=== PATIENT | female | born 1995 | race Hispanic/Latino ===

== ENCOUNTER 2018-07-16 11:08 | Day surgery (SDC) | payer MEDICAID ==
[~2018-07-16 11:08] MED LIST: DEMEROL IV PRN; DILAUDID IV PRN; LACTATED RINGERS 1,000 ML IV SCH; ZOFRAN IV PRN
--- NOTE | 2018-07-16 12:30 | Anesthesia Consultation ---
Anesthesia Consult and Med Hx Date of service: 07/16/18 - Airway Anesthetic Teeth Evaluation: Good ROM Head & Neck: Adequate Mental/Hyoid Distance: Adequate Mallampati Class: Class I Intubation Access Assessment: Good - Pulmonary Exam CTA: Yes - Cardiac Exam Cardiac Exam: RRR - Pre-Operative Health Status ASA Pre-Surgery Classification: ASA1 Proposed Anesthetic Plan: General - Pulmonary Hx Smoking: Yes (STOPPED X 3 MONTHS ( 1 PACK PER WEEK)) Hx Asthma: Yes (INHALER PRN) Hx Sleep Apnea: No (BECKY PRE SCREEN NEGATIVE.) - Cardiovascular System Hx Hypertension: No - Central Nervous System Hx Back Pain: Yes (FROM STONE) - Other Systems Hx Cancer: No
--- NOTE | 2018-07-16 12:30 | Anesthesia Day of Surgery ---
Anesthesia Day of Surgery - Day of Surgery Patient Examined: Yes Patient H&P Reviewed: Yes Patient is NPO: Yes
[2018-07-16] MEDS: VERSED IV NR ×2 (13:10→15:34)
[2018-07-16] MEDS ORDERED: ANCEF/STERILE WATER 2 GM/20 ML IV NR (14:00)
[2018-07-16] MEDS ORDERED: DIPRIVAN 10 MG/ML IV ONE (15:47)
[2018-07-16] MEDS ORDERED: SUBLIMAZE ONE (15:47)
--- NOTE | 2018-07-16 16:16 | Post Operative Note ---
Date of procedure: 07/16/18 Pre-op diagnosis: l renal stone Post-op diagnosis: same Findings: as above Procedure: l eswl Anesthesia: PRINCESS Surgeon: ELLYN NIETO Estimated blood loss: none Pathology: none Condition: stable Disposition: PACU
--- NOTE | 2018-07-16 16:17 | Discharge Summary ---
Short Stay Discharge Plan Activity: other (no straining ) Weight Bearing Status: Full Weight Bearing Diet: regular, low fat Special Instructions: other (inc fluids ) Follow up with: SETH FIELD MD [Primary Care Provider] - 7 Days ELLYN NIETO MD [Staff Physician] - 14 Days
--- NOTE | 2018-07-16 16:42 | Operative Report ---
PREOPERATIVE DIAGNOSIS: Left upper pole stone. POSTOPERATIVE DIAGNOSES: Left upper pole stone. PROCEDURE: Left extracorporeal shock wave lithotripsy. SURGEON: Rakesh Medrano MD ANESTHESIA: General. FINDINGS: This is a woman with left flank pain. She was found to have a 7 mm upper pole stone. She now presents for lithotripsy. All the risks and implications discussed. DESCRIPTION OF PROCEDURE: The patient was brought to the operating room and placed on the operating table. Following induction of anesthesia, stone was easily localized, both the AP and oblique image. Shocks were begun at 1 kV, increased to a maximum of 8 kV. The patient tolerated the procedure well. 2500 shocks were given. There was excellent fragmentation. We did not stay at 8 for long. She was brought to recovery room in stable condition. JOB# [id number] CURRY/MEDARDO
[2018-07-16] MEDS ORDERED: DECADRON ONE (16:43)
[2018-07-16] MEDS ORDERED: ZOFRAN ONE (16:43)
[2018-07-17 11:54] VITALS: BP 128/58
== END 2018-07-16 11:09 | disposition home or self-care (01) ==
LOC: OR 11:08
PROVIDERS: ATTEND Urology
DX: N20.0 Calculus of kidney (principal); J45.909 Unspecified asthma, uncomplicated; F32.9 Major depressive disorder, single episode, unspecified; Z98.890 Other specified postprocedural states; F41.9 Anxiety disorder, unspecified; Z87.891 Personal history of nicotine dependence; Z79.899 Other long term (current) drug therapy
CPT/HCPCS: 50590; 81025; J0690; J1100; J2250; J2405; J2704; J3010; J7120

== ENCOUNTER 2019-09-16 13:37 | Outpatient (CLI) | payer OTHER ==
--- NOTE | 2019-09-16 14:19 | XRay Report ---
XR hand 3+V LT INDICATION / CLINICAL INFORMATION: LT HAND PAIN. COMPARISON: None available. FINDINGS: BONES/JOINT(S): No acute fracture or subluxation. No significant degenerative changes. SOFT TISSUES: No significant abnormality. ADDITIONAL FINDINGS: None. Signer Name: Dat Callahan MD Signed: 09/16/2019 2:15 PM Workstation Name: [id number]
--- NOTE | 2019-09-16 14:19 | XRay Report ---
RIGHT HIP 2 VIEWS INDICATION / CLINICAL INFORMATION: RT HIP PAIN COMPARISON: None available. FINDINGS: BONES / JOINT(S): The hip and SI joint spaces are well-maintained. There is no evidence of fracture, subluxation or destructive lesion. SOFT TISSUES: No significant abnormality. ADDITIONAL FINDINGS: There is an IUD well situated in the central pelvis. IMPRESSION: No significant osseous abnormality. Signer Name: Ricco Starks MD Signed: 09/16/2019 2:15 PM Workstation Name: [id number]
== END 2019-09-16 13:38 | disposition home or self-care (01) ==
LOC: XRAY 13:37
DX: M25.551 Pain in right hip (principal); M79.642 Pain in left hand